=== PATIENT | female | born 1970 | race Caucasian/White ===

== ENCOUNTER 2017-04-23 04:59 | Inpatient (IN) | payer OTHER ==
[~2017-04-23] VITALS: Ht 167.6 cm; Wt 70.5 kg
[2017-04-23] MEDS ORDERED: HYDR50TA70 PO ×2 (05:40→12:48)
[2017-04-23] MEDS ORDERED: TYLE325C PO (05:40)
[2017-04-23] MEDS ORDERED: MOBI15TA PO (05:40)
[2017-04-23] MEDS ORDERED: BUSP10TA PO ×2 (05:40→14:18)
[2017-04-23] MEDS ORDERED: TOPI50TA9 PO ×2 (05:40→14:18)
[2017-04-23] MEDS ORDERED: LEXA1TAB2 PO ×2 (05:40→12:48)
[2017-04-23] MEDS ORDERED: AMIT25TA PO ×2 (05:40→12:48)
[2017-04-23 06:14] LABS: BASO % 0.2 % (0.0-1.0); EOS # 0.1 10^3/uL (0.0-0.50); EOS % 0.4 % (0.0-3.0); IMMATURE GRANULOCYTE % 0.7 % (0-0); LYMPH % 6.2 % (24.0-44.0); MEAN CORPUSCULAR HEMOGLOBIN 28.8 pg (27.0-33.0); MEAN CORPUSCULAR HGB CONC 33.7 g/dl (32.0-36.5); MEAN CORPUSCULAR VOLUME 85.4 fl (80.0-96.0); MONO # 1.4 10^3/uL (0.0-0.8); MONO % 8.8 % (0.0-5.0); NEUTROPHILS # 13.3 10^3/uL (1.8-7.7); NEUTROPHILS % 83.7 % (36.0-66.0); PLATELET COUNT, AUTOMATED 250 10^3/uL (150-450); RED CELL DISTRIBUTION WIDTH 15.5 % (11.5-14.5); WHITE BLOOD COUNT 15.9 10^3/uL (4.0-10.0)
[2017-04-23 06:25] LABS: METHADONE URINE NEGATIVE (NEGATIVE)
[2017-04-23 06:30] LABS: CONTROL LINE HCG INT CTR LINE PRESENT
[2017-04-23 07:03] LABS: ALBUMIN 3.5 GM/DL (3.2-5.2); ALBUMIN/GLOBULIN RATIO 0.97 (1.00-1.93); ALKALINE PHOSPHATASE 109 U/L (45-117); ALT/SGPT 462 U/L (12-78); ANION GAP 10 MEQ/L (8-16); AST/SGOT 1573 U/L (7-37); BILIRUBIN,DIRECT 0.1 MG/DL (0.0-0.2); BILIRUBIN,TOTAL 0.5 MG/DL (0.2-1.0); BLOOD UREA NITROGEN 19 MG/DL (7-18); CALCIUM LEVEL 8.5 MG/DL (8.5-10.1); CARBON DIOXIDE LEVEL 22 MEQ/L (21-32); CHLORIDE LEVEL 105 MEQ/L (98-107); CREATININE FOR GFR 1.27 MG/DL (0.55-1.02); GLOMERULAR FILTRATION RATE 48.7 (>58); GLUCOSE, FASTING 107 MG/DL (70-105); POTASSIUM SERUM 3.6 MEQ/L (3.5-5.1); SODIUM LEVEL 137 MEQ/L (136-145); TOTAL PROTEIN 7.1 GM/DL (6.4-8.2)
[2017-04-23] MEDS ORDERED: NS 1,000 ML IV ONE (07:15)
[2017-04-23 07:46] LABS: INR 0.99
[2017-04-23] MEDS ORDERED: NICOTINE 21MG/24HR 1 EA TRANSDERMAL TD SCH (10:30)
[2017-04-23] MEDS ORDERED: MOM 30ML SUSPENSION UDC PO PRN (10:30)
[2017-04-23] MEDS ORDERED: MAALOX 30 ML SUSP *UDC PO PRN (10:30)
[2017-04-23 11:44] VITALS: BP 128/72
[2017-04-23] MEDS ORDERED: LORA10TA2 PO (12:48)
[2017-04-23] MEDS ORDERED: ACET1TAB17 PO (14:18)
[2017-04-23] MEDS ORDERED: MELO15TA4 PO (14:18)
--- NOTE | 2017-04-23 16:01 | CR.PDOC ---
[facility] Consultation Consultation DATE OF CONSULTATION: Apr 23, 2017 at 04:59 PRIMARY CARE PHYSICIAN: Dr. Cosme REFERRING PROVIDER: Dr. Cosme ATTENDING PHYSICIAN: Dr. Cosme REASON FOR CONSULTATION/CHIEF COMPLAINT: left leg numbness and weakness HISTORY OF PRESENT ILLNESS: 46 y/o female with past medical history of depression and bipolar complains of left leg numbness and weakness that began one day ago and is progressively getting worse. Pt states she still has good sensation to her left leg, denies other extremities with weakness, numbness or paralysis. She has chronic low back pain and states that yesterday it seems as though the back pain got worse., denies recent trauma to account for this. The pt denies having any incontinence of bowel or urine, denies numbness in the groin, denies fevers, muscle aches or chills. She denies n/v nor diarrhea or blood in urine or stool. She states her leg does not hurt but that it is just heavy and feels numb. ALLERGIES: Please see below. HOME MEDICATIONS: Please see below. PAST MEDICAL HISTORY: bipolar, depression, CBP REVIEW OF SYSTEMS: CONSTITUTIONAL: denies changes in sleep or weight HEENT: no headache or change in vision CARDIOVASCULAR: no chest pain, SOB, cough or racing heart RESPIRATORY: no sob or cough GENITOURINARY: no pain w urination or blood in urine MUSCULOSKELETAL: no other areas of her body with numbness or weakness GASTROINTESTINAL: no n/v nor diarrhea SKIN: no rashes PSYCHIATRIC: pt is appropriate, has bipolar disease and is in [facility] PHYSICAL EXAMINATION: VITAL SIGNS: Please see below. 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 ASSESSMENT/PLAN: 1. Numbness -will obtain MRI and x-ray of L-spine, suspect this is secondary to compression of sciatic nerve, likely to resolve in the next few hours to days. -physical therapy consulted for optimization -May consult Ortho., depending on imaging finding 2. Transaminitis -likely secondary to past drug use -hepatitis panel pending -pending abdominal u/s -follow up liver function tests 3. Hypothyroid -repeat thyroid study -TSH 3.9 4.rhabdomyolysis -creatine 1.32 -81515 total CK -encourage oral hydration -will trend CK Vital Signs/I&O Vital Signs Date Time Temp Pulse Resp B/P (MAP) Pulse Ox O2 Delivery O2 Flow Rate FiO2 04/23/17 11:44 96.4 90 18 128/72 (90) 04/23/17 10:45 99 Room Air Laboratory Data Labs 24H Laboratory Tests 2 04/23/17 05:45: Immature Granulocyte % (Auto) 0.7H, White Blood Count 15.9H, Red Blood Count 4.31, Hemoglobin 12.4, Hematocrit 36.8, Mean Corpuscular Volume 85.4, Mean Corpuscular Hemoglobin 28.8, Mean Corpuscular Hemoglobin Concent 33.7, Red Cell Distribution Width 15.5H, Platelet Count 250, Neutrophils (%) (Auto) 83.7H, Lymphocytes (%) (Auto) 6.2L, Monocytes (%) (Auto) 8.8H, Eosinophils (%) (Auto) 0.4, Basophils (%) (Auto) 0.2, Neutrophils # (Auto) 13.3H, Lymphocytes # (Auto) 1.0L, Monocytes # (Auto) 1.4H, Eosinophils # (Auto) 0.1, Basophils # (Auto) 0.0 , Immature Granulocyte # (Auto) 0.1H, Nucleated Red Blood Cells % (auto) 0.0, Prothrombin Time 13.2, Prothromb Time International Ratio 0.99, Anion Gap 10, Glomerular Filtration Rate 48.7L, Calcium Level 8.5, Aspartate Amino Transf (AST /SGOT) 1573H, Alanine Aminotransferase (ALT/SGPT) 462H, Alkaline Phosphatase 109 , Total Bilirubin 0.5, Direct Bilirubin 0.1, Total Creatine Kinase 42330D, Total Protein 7.1, Albumin 3.5, Albumin/Globulin Ratio 0.97L, Thyroid Stimulating Hormone (TSH) 3.900H, Human Chorionic Gonadotropin, Qual NEGATIVE, Salicylates Level < 1.7L, Urine Amphetamines Screen NEGATIVE, Urine Benzodiazepines Screen NEGATIVE, Urine Opiates Screen NEGATIVE, Urine Methadone Screen NEGATIVE, Acetaminophen Level < 2.0L, Urine Barbiturates Screen NEGATIVE , Urine Phencyclidine Screen NEGATIVE, Urine Cocaine Metabolite Screen NEGATIVE , Urine Cannabinoids Screen NEGATIVE, Ethyl Alcohol Level < 0.003 04/23/17 15:40: CBC/BMP Laboratory Tests 04/23/17 05:45 Red Blood Count 4.31, Mean Corpuscular Volume 85.4, Mean Corpuscular Hemoglobin 28.8, Mean Corpuscular Hemoglobin Concent 33.7, Red Cell Distribution Width 15.5 H, Neutrophils (%) (Auto) 83.7 H, Lymphocytes (%) (Auto) 6.2 L, Monocytes ( %) (Auto) 8.8 H, Eosinophils (%) (Auto) 0.4, Basophils (%) (Auto) 0.2, Neutrophils # (Auto) 13.3 H, Lymphocytes # (Auto) 1.0 L, Monocytes # (Auto) 1.4 H, Eosinophils # (Auto) 0.1, Basophils # (Auto) 0.0 Allergies Coded Allergies: Sulfa Antibiotics (Verified Allergy, Severe, 04/23/17) Cephalosporins (Unverified Allergy, Unknown, 04/23/17) Penicillins (Verified Allergy, Unknown, 04/23/17) Home Medications Scheduled Amitriptyline HCl (Amitriptyline HCl) 25 Mg Tab, 25 MG PO QHSP for INSOMNIA, ( Reported) Buspirone HCl (Buspirone HCl) 10 Mg Tab, 10 MG PO BID for ANXIETY, (Reported) Escitalopram Oxalate (Lexapro) 20 Mg Tab, 20 MG PO DAILY for DEPRESSION, ( Reported) Hydroxyzine HCl (Hydroxyzine HCl) 50 Mg Tab, 50 MG PO Q6HP for ANXIETY, ( Reported) Loratadine (Loratadine) 10 Mg Tab, 10 MG PO DAILY for allergies, (Reported) Meloxicam (Meloxicam) 15 Mg Tab, 15 MG PO DAILY for pain, (Reported) Topiramate (Topiramate) 50 Mg Tab, 50 MG PO BID for MOOD, (Reported) Scheduled PRN Acetaminophen (Acetaminophen) 325 Mg Tab, 325 MG PO Q6HP PRN for pain, (Reported ) GME ATTESTATION GME ATTESTATION My faculty preceptor for this patient encounter was physically present during the encounter and was fully available. All aspects of the patient interview, examination, medical decision making process, and medical care plan development were reviewed and approved by the faculty preceptor. The faculty preceptor is aware and concurs with the plan as stated in the body of this note and will attest to such by his/her cosignature. ATTENDING NOTE I have both independently examined this patient as well as reviewed the note. I have discussed in detail with the resident the findings and plan of treatment as documented in the residents note. I will continue to follow the patient and offer further guidance to the patients care as necessary during this hospital stay. SCOTT Leal MD, DO Apr 23, 2017 16:01 DAYO OLIVARES MD Apr 24, 2017 11:53
[2017-04-23 16:41] LABS: THYROXINE (T4) 9.1 UG/DL (4.5-12.0)
--- NOTE | 2017-04-23 16:50 | REP ---
Clinical: Back pain extending to the left lower extremity with possible fall. Technique: AP, lateral, bilateral oblique, and coned-down views. Findings: Alignment and lordosis is maintained. The vertebral bodies including transverse process and spinous processes are intact and normal. There is no evidence for acute fracture / compression injury or subluxation. No evidence for spondylolysis or spondylolisthesis. No significant degenerative change is noted. Impression: Normal, age-appropriate lumbosacral spine radiograph series. Signed by Crow Graves MD 04/23/2017 04:42 P
[2017-04-23 18:00] VITALS: BP 121/56
[2017-04-23 21:00] VITALS: BP 121/56
[2017-04-23] MEDS: ACETAMINOPHEN TAB 650MG DOSE (2X325MG) PO PRN (23:29)
[2017-04-24 06:47] VITALS: BP 114/67
[2017-04-24 07:41] LABS: MEAN CORPUSCULAR HEMOGLOBIN 28.6 pg (27.0-33.0); MEAN CORPUSCULAR HGB CONC 33.7 g/dl (32.0-36.5); MEAN CORPUSCULAR VOLUME 84.9 fl (80.0-96.0); PLATELET COUNT, AUTOMATED 226 10^3/uL (150-450); RED CELL DISTRIBUTION WIDTH 15.2 % (11.5-14.5); WHITE BLOOD COUNT 9.6 10^3/uL (4.0-10.0)
[2017-04-24 08:24] LABS: ALBUMIN/GLOBULIN RATIO 1.03 (1.00-1.93); BILIRUBIN,TOTAL 0.4 MG/DL (0.2-1.0); CALCIUM LEVEL 8.4 MG/DL (8.5-10.1); CREATININE FOR GFR 1.08 MG/DL (0.55-1.02); GLOMERULAR FILTRATION RATE 58.7 (>58); MAGNESIUM LEVEL 2.3 MG/DL (1.8-2.4); POTASSIUM SERUM 3.6 MEQ/L (3.5-5.1); TOTAL PROTEIN 5.9 GM/DL (6.4-8.2)
--- NOTE | 2017-04-24 09:32 | MHHPE ---
DATE OF ADMISSION: 04/23/2017 LEGAL STATUS AT ADMISSION: 9.39 legal status. CHIEF COMPLAINT: "I have been feeling very depressed". HISTORY OF PRESENT ILLNESS: 46-year-old female with history of bipolar disorder and anxiety admitted to our unit on a 9.39 legal status. According to the record, the patient is a dependent that was brought to our emergency department after she overdosed on unknown number of Lexapro, hydroxyzine, and amitriptyline and she does not know if she took some other type of medication. The patient stated that she believed she took approximately 20 tablets of amitriptyline, but she is not sure. The patient was making a statement such as, "I want to be normal". The patient admits that when she gets depressed she has a tendency to drink more. She says that she was drinking approximately two times a week. The last time she drank she says that she drank 8 beers and 5 shots o whiskey. During the interview, the patient admits to feeling depressed, hopeless, and helpless with low energy. The patient also reports auditory hallucinations, hears like "music" when everything is very quiet. The patient does not have other psychotic symptoms. The patient has been treated with Lexapro, Topamax, BuSpar and Vistaril. She is getting her treatment at [facility]. PAST MEDICAL HISTORY: The patient reports lower back pain. She is under investigation of a left lower leg numbness. The hospitalist is at this time doing the medical workup. PSYCHIATRIC HISTORY: Patient has been diagnosed of bipolar disorder and anxiety. She is treated as an outpatient at [facility]. The patient was admitted two years ago in a hospital in [place] for depression. FAMILY HISTORY: The patient reports that her mother, grandmother and daughter suffer from depression. SUBSTANCE ABUSE HISTORY: The patient reports using more alcohol than normally since she started feeling depressed. She has tendency to drink more during these episodes. As above, the patient drank 8 beers and 5 shots of whiskey the last time she drank and says that approximately drinks two times a week. SOCIAL HISTORY: The patient reports normal childhood. No problems at school until she was in high school when they started bullying her. The patient has been for 4-1/2 years and has three daughters. Her support system is her . PSYCHIATRIC REVIEW OF SYSTEMS: Somatization Disorder: Screening for pain, conversion, GI and sexual symptoms is negative. Eating Disorder: Screening for dieting, use of laxatives, eating in binges is negative. Cognitive Disorder: Screening for short and longterm memory impairment, orientation and general information is negative for cognitive disorder. Psychotic Disorder: The patient reports auditory hallucionations, but denies delusions, paranoia, grandiosity, catholic preoccupation, or looseness of associations. PHYSICAL EXAMINATION: As per physician assistant field hockey coach. MENTAL STATUS EXAMINATION: The patient is dressed in [facility]. The patient is cooperative. Speech is soft and monotone. Has fair eye contact. Mood is anxious and depressed. Affect is restricted. The patient is oriented to time, place, person and situation. Maintains attention and concentration correctly. Instant recall, recent and remote memory are intact. Thought processes are coherent, logical and goal directed. The patient does not have visual hallucinations, reports auditory hallucinations of hearing music when the room is very quiet. Denies paranoid, persecutory, somatic, grandiose or catholic delusions. The patient has suicidal ideation intermittently. No homicidal ideation. Judgment and insight is limited. DIAGNOSES: [place] I: Unspecified depressive disorder. Bipolar disorder by history. Rule out alcohol abuse versus dependency. [place] II: Deferred. [place] III: Lower back pain and left leg numbness. INITIAL TREATMENT PLAN: The patient was admitted on a 9.39 legal status. Complete history was obtained. With her permission, family with be contacted and database will be expanded. Her medication regime will be reviewed and changed accordingly. She will be provided with protected environment. She will be treated with individual, group and milieu therapy. She will also receive supportive psychoeducation. Discharge planning will commence immediately. Length of stay will be between 5-7 days. Outpatient followup will be strongly recommended. The treatment plan will focus initially on depression, risk for suicide and substance abuse.
[2017-04-24 18:00] VITALS: BP 109/64
--- NOTE | 2017-04-24 18:35 | IPN ---
DATE: 04/24/2017 SUBJECTIVE: The patient is seen and examined in the room today. The patient stated her lower extremity symptoms have been improving. Still complaining about pain in the lower back. No issue with oral intake. OBJECTIVE: VITAL SIGNS: Temperature 98.7, pulse 91, respirations 18, blood pressure 114/67, pulse oximetry no recording for today. GENERAL: No sign of acute distress. Sitting comfortably in her room eating her meal. Alert and oriented times three. HEENT: Normocephalic, atraumatic. Extraocular motor grossly intact. CARDIOVASCULAR: Positive S1, S2. Regular rate. LUNGS: Clear to auscultation bilaterally. ABDOMEN: Soft, nontender, nondistended. Bowel sounds present. No tenderness. EXTREMITIES: There is some tenderness to palpation in the lower back and there is some swelling noted. LABORATORY DATA: WBC 9.6, hemoglobin 10.6, hematocrit 31.5, platelet count 226. Sodium 141, potassium 3.6, chloride 109, carbon dioxide 25, BUN 16, creatinine 1.08, GFR 58.7, fasting glucose 86, calcium 8.4, magnesium 2.3. Total bilirubin 0.4, AST 1047, ALT 452, alkaline phosphatase 86. Total CK is 44,891. Total protein 5.9, albumin three. ASSESSMENT AND PLAN: 1. Rhabdomyolysis. Total CK is improving. Encourage oral intake. The patient did drink multiple cups of water. 2. Numbness of the lower extremities. The patient showed symptomatically improving. However, there is still no official read for the lumbar MRI. 3. Hypothyroidism. Thyroid functions are in normal range. 4. Transaminitis. Hepatitis panel pending. At this moment, the patient is not able to be nothing by mouth to prepare for liver function. We will reschedule at another appropriate time. Possibly due to medication related. 5. Deep venous thrombosis (DVT) prophylaxis. Encourage ambulation.
--- NOTE | 2017-04-25 02:41 | HPE ---
DATE OF ADMISSION: 04/23/2017 HISTORY OF PRESENT ILLNESS: Please refer to psychiatric history and evaluation for further details on this admission. This examination and history is intended for medical issues, which may need treatment, followup or consult on this 46-year-old female. ALLERGIES: CEPHALOSPORINS, PENICILLINS, SULFA. PRIMARY CARE PROVIDER: [facility]. 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 She smokes one pack of cigarettes per day. Ethyl alcohol (EtOH) 5-10 drinks 2-3 times a week. PAST MEDICAL HISTORY: 1. Bipolar. 2. Depression. 3. Chronic back pain. She is currently having a further workup for complaints of increased lower back pain with lower left leg numbness and weakness. She has an MRI scheduled for the morning. 4. She is currently being treated for rhabdomyolysis and elevated liver enzymes. Fluids are being encouraged and she has a liver ultrasound scheduled for the morning. Hepatitis panel is pending. PAST SURGICAL HISTORY: She has had repair of left ankle fracture with plate and six screws. Orthopedic surgery left wrist and hand. LABORATORY STUDIES: 04/23: Her CPK was 76,147, today it is 44,891. AST was 1573, it is down to 1047. ALT was 462, it is down to 452. Initial TSH was 3.9. Recheck thyroid profile was completely normal. HOME MEDICATIONS: - amitriptyline 25 mg by mouth nightly - buspirone 10 mg by mouth twice a day - escitalopram 20 mg by mouth daily - hydroxyzine 50 mg by mouth every six hours as needed for anxiety - loratadine 10 mg by mouth daily - meloxicam 15 mg by mouth daily - Topamax 50 mg by mouth twice a day - Tylenol 325 by mouth every 6 hours as needed for pain which I will hold secondary to elevated liver enzymes REVIEW OF SYSTEMS: 10-system review was done. Other than overall muscle aching and left lower leg numbness and weakness, elevated CPK, hospitalist consult was obtained. See consultation report for further details. Patient is having an MRI of the lumbosacral (LS) spine. Hepatitis panel is pending. Abdominal ultrasound is pending. Serial CPKs are ordered. Increased fluid by mouth has been instructed to the patient and she is being compliant with this. PHYSICAL EXAMINATION: 46-year-old cooperative female in no acute distress. Height 66 inches, weight 70 kg, body mass index (BMI) 25.1. Patient is alert and oriented times three. Pupils equal and react to light. Extraocular muscles intact. Cornea and sclerae clear. Conjunctivae were normal. No facial asymmetry. Pharynx, tongue and gums pink and moist. Tongue is midline. Neck is supple without lymphadenopathy. No thyromegaly, no goiter. Chest clear to auscultation without wheeze or retraction. Heart is regular. Abdomen is benign. Bowel sounds positive. Genitourinary/rectal: Not done. Extremities show equal strength, full range of motion. No cyanosis, clubbing or edema. Peripheral pulses equal and palpable bilaterally. Skin is warm and dry. Numbness noted to left lower leg. IMPRESSION/PLAN: 1. Psychiatric plan per psychiatry. 2. Rhabdomyolysis. CK is improving. Encourage oral intake. Recheck in the morning. 3. Numbness lower extremity and low back pain. Followup on MRI of the lumbosacral (LS) spine. 4. Elevated AST/ALT. Hepatitis panel pending. Ultrasound is scheduled for tomorrow. Followup on results. Recheck liver enzymes in the morning. Stop Tylenol secondary to increased liver enzymes.
[2017-04-25 06:00] VITALS: BP 110/62
[2017-04-25 08:16] LABS: MEAN CORPUSCULAR HEMOGLOBIN 28.8 pg (27.0-33.0); MEAN CORPUSCULAR HGB CONC 33.8 g/dl (32.0-36.5); MEAN CORPUSCULAR VOLUME 85.3 fl (80.0-96.0); PLATELET COUNT, AUTOMATED 266 10^3/uL (150-450); RED CELL DISTRIBUTION WIDTH 14.9 % (11.5-14.5); WHITE BLOOD COUNT 10.3 10^3/uL (4.0-10.0)
--- NOTE | 2017-04-25 08:17 | ECGEPIP ---
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
[2017-04-25 09:01] LABS: ALBUMIN 3.2 GM/DL (3.2-5.2); BILIRUBIN,TOTAL 0.4 MG/DL (0.2-1.0); CALCIUM LEVEL 8.7 MG/DL (8.5-10.1); CREATININE FOR GFR 1.12 MG/DL (0.55-1.02); GLOMERULAR FILTRATION RATE 56.3 (>58); MAGNESIUM LEVEL 2.1 MG/DL (1.8-2.4); POTASSIUM SERUM 3.5 MEQ/L (3.5-5.1); TOTAL PROTEIN 6.4 GM/DL (6.4-8.2)
--- NOTE | 2017-04-25 09:05 | REP ---
MR LUMBAR SPINE WITHOUT CONTRAST: HISTORY: Back pain. Decreased signal intensity on T2-weighted images is present in the L5-S1 intervertebral disc. The disc is decreased in height. These findings are consistent with disc degeneration. There is no disc bulge or herniation at the L1-2 through L3-4 level. The nerves exit the neural foramina without compression. A diffuse disc bulge is present at the L4-5 level. There is minimal compression at the thecal sac. There is hypertrophy of the posterior articulating facets. The L4 nerves exit the neural foramina without compression. A diffuse disc bulge is present at the L5-S1 level. This abuts the thecal sac and S1 nerves. There is hypertrophy of the posterior articulating facets. The L5 nerves exit the neural foramina without compression. The conus medullaris is normal in appearance terminating the level of the L1-2 intervertebral disc. Normal signal intensity is present in the lumbar vertebral bodies. IMPRESSION: 1. Diffuse disc bulge at the L4-5 level with minimal thecal sac compression. 2. Diffuse disc bulge at the L5-S1 level. This abuts the thecal sac and S1 nerves. Signed by Geoff Hernandez MD 04/25/2017 09:22 A
[2017-04-25] MEDS: ESCITALOPRAM OXALATE 10 MG TAB (LEXAPRO) PO SCH (09:33)
--- NOTE | 2017-04-25 09:45 | REP ---
Clinical: Right upper quadrant abdominal pain. Technique: Price scale ultrasound using curved array transducer. Findings: The liver and pancreas are normal in contour, size, and echogenicity without focal hepatic or pancreatic lesions identified. The gallbladder is normal without gallstones, wall thickening or pericholecystic fluid. No biliary ductal dilatation is appreciated, and the common bile duct measures 3.9 mm diameter. The right kidney is normal in reniform shape without hydronephrosis and measures 11.5 x 5.2 x 5.8 cm. No ascites. Visualized portions of the abdominal aorta normal. Impression: Normal right upper quadrant and gallbladder abdominal ultrasound. Signed by Crow Graves MD 04/25/2017 09:37 A
--- NOTE | 2017-04-25 09:56 | ECGEPIP ---
Stationary ECG Study [facility] Test Date: 2017-04-25 Pat Name: JOHN WAGNER Department: Room: [place] [address] Gender: F Pulper: AZALIA : 1970 Requested By: Debra Conley [facility] Order Number: [id number] Reading MD: Yulia Mejia Measurements Intervals [place] Rate: 80 P: 56 ME: 153 QRS: -3 QRSD: 105 T: 38 QT: 400 QTc: 464 Interpretive Statements SINUS RHYTHM ST T-WAVE ABNORMALITY somewhat improved Left axis deviation again present C/w 1 04/23/17 Electronically Signed On 04-25-2017 9:56:18 EST by Yulia Mejia
--- NOTE | 2017-04-25 15:49 | MHIPNPDOC ---
[facility] Progress Note Progress Note DATE OF SERVICE: 04/25/17 HISTORY: As per Dr. Cosme: " 46-year-old female with history of bipolar disorder and anxiety admitted to our unit on a 9.39 legal status. According to the record, the patient is a dependent that was brought to our emergency department after she overdosed on unknown number of Lexapro, hydroxyzine, and amitriptyline and she does not know if she took some other type of medication. The patient stated that she believed she took approximately 20 tablets of amitriptyline, but she is not sure. The patient was making a statement such as , "I want to be normal". The patient admits that when she gets depressed she has a tendency to drink more. She says that she was drinking approximately two times a week. The last time she drank she says that she drank 8 beers and 5 shots o whiskey. During the interview, the patient admits to feeling depressed , hopeless, and helpless with low energy. The patient also reports auditory hallucinations, hears like "music" when everything is very quiet. The patient does not have other psychotic symptoms. The patient has been treated with Lexapro, Topamax, BuSpar and Vistaril. She is getting her treatment at [facility]." VITAL SIGNS: See below. NEW TEST RESULTS: 24H Labs Laboratory Tests 2 04/25/17 07:45: Nucleated Red Blood Cells % (auto) 0.0 04/25/17 07:46: Anion Gap 8, Glomerular Filtration Rate 56.3L, Blood Urea Nitrogen 15, Creatinine 1.12H, Sodium Level 144, Potassium Level 3.5, Chloride Level 108H, Carbon Dioxide Level 28, Calcium Level 8.7, Aspartate Amino Transf (AST/SGOT) 885H, Alanine Aminotransferase (ALT/SGPT) 482H, Total Creatine Kinase 93169D, Alkaline Phosphatase 86, Total Bilirubin 0.4, Total Protein 6.4, Albumin 3.2, Magnesium Level 2.1, Creatine Kinase MB 43.8H, Creatine Kinase MB Relative Index 0.14, Albumin/Globulin Ratio 1.00 CURRENT MEDICATIONS: See below. MENTAL STATUS EXAMINATION: Patient is a 46-year old female, who is alert, cooperative, dressed in hospital clothes, fairly groomed. Speech: Normal in tone, rate and volume Language skills are Fair Thought processes including: Intact. Thought content: Anxious thoughts about her suicidal attempt Abstract reasoning, and computation: Not assessed at this time. Description of associations: Fair Description of abnormal or psychotic thoughts: Denies SI/HI, A/V hallucinations , thought delusions. Judgment: Poor Insight: Poor Orientation: Oriented to place, person and situation Recent and remote memory: Limited Attention span and concentration: Fair Language: Normal Fund of knowledge: Average Mood: Euthymic. Affect: Congruent with mood DIAGNOSES: 1. Unspecified depressive disorder. 2. Bipolar disorder by history. 3. Rule out alcohol abuse versus dependency. ASSESSMENT: Patient says she's not hallucinating, she denies suicidal ideation, denies homicidal ideation. She says she feels better, her head "is quiet now because it was loud in there". She says she doesn't know why her back are not the same since she overdosed. She thinks it might have been by laying on the same side of her body when she was unconscious laying on the floor. MANAGEMENT PLAN: continue with the same meds. TIME SPENT: 20 minutes. Vital Signs Vital Signs Date Time Temp Pulse Resp B/P (MAP) Pulse Ox O2 Delivery O2 Flow Rate FiO2 04/25/17 06:00 97.7 75 16 110/62 (78) 04/24/17 18:00 99 Room Air Laboratory Data 24H Labs Laboratory Tests 2 04/25/17 07:45: Nucleated Red Blood Cells % (auto) 0.0 04/25/17 07:46: Anion Gap 8, Glomerular Filtration Rate 56.3L, Blood Urea Nitrogen 15, Creatinine 1.12H, Sodium Level 144, Potassium Level 3.5, Chloride Level 108H, Carbon Dioxide Level 28, Calcium Level 8.7, Aspartate Amino Transf (AST/SGOT) 885H, Alanine Aminotransferase (ALT/SGPT) 482H, Total Creatine Kinase 07208N, Alkaline Phosphatase 86, Total Bilirubin 0.4, Total Protein 6.4, Albumin 3.2, Magnesium Level 2.1, Creatine Kinase MB 43.8H, Creatine Kinase MB Relative Index 0.14, Albumin/Globulin Ratio 1.00 CBC/BMP Laboratory Tests 04/25/17 07:45 Red Blood Count 4.16, Mean Corpuscular Volume 85.3, Mean Corpuscular Hemoglobin 28.8, Mean Corpuscular Hemoglobin Concent 33.8, Red Cell Distribution Width 14.9 H 04/25/17 07:46 Calcium Level 8.7, Aspartate Amino Transf (AST/SGOT) 885 H, Alanine Aminotransferase (ALT/SGPT) 482 H, Total Creatine Kinase 28061 H, Alkaline Phosphatase 86, Total Bilirubin 0.4, Total Protein 6.4, Albumin 3.2 Current Medications Current Medications Acetaminophen (Tylenol Tab) 650 mg Q6HP PRN PO HEADACHE or DISCOMFORT Last administered on 04/23/17 23:29; Start 04/23/17 at 10:30; Stop 05/23/17 at 10 :29 Al Hydrox/Mg Hydrox/Simethicone (Mylanta) 30 ml Q4HP PRN PO HEARTBURN/ INDIGESTION; Start 04/23/17 at 10:30; Stop 05/23/17 at 10:29 Escitalopram Oxalate (Lexapro) 20 mg DAILY PO Last administered on 04/25/17 09:33; Start 04/25/17 at 09:00; Stop 05/25/17 at 08:59 Home Med (Med Rec Complete!) ASDIRECTED XX ; Start 04/23/17 at 06:30; Stop at 06:30; Status DC Magnesium Hydroxide (Milk Of Magnesia) 30 ml DAILYPRN PRN PO CONSTIPATION; Start 04/23/17 at 10:30; Stop 05/23/17 at 10:29 Nicotine (Nicoderm Cq 21mg) 1 patch DAILY TD ; Start 04/23/17 at 10:30; Stop 04/24/17 at 08:44; Status DC Trazodone HCl (Desyrel) 50 mg QHSP PRN PO INSOMNIA; Start 04/23/17 at 10:30; Stop 05/23/17 at 10:29 Allergies Coded Allergies: Sulfa Antibiotics (Verified Allergy, Severe, 04/23/17) Cephalosporins (Unverified Allergy, Unknown, 04/23/17) Penicillins (Verified Allergy, Unknown, 04/23/17) DARREL POSEY MD Apr 25, 2017 15:49
[2017-04-25 18:11] VITALS: BP 125/79
[2017-04-25] MEDS: ACETAMINOPHEN TAB 650MG DOSE (2X325MG) PO PRN (22:50)
[2017-04-26 06:40] VITALS: BP 129/78
[2017-04-26 08:56] LABS: MEAN CORPUSCULAR HEMOGLOBIN 28.8 pg (27.0-33.0); MEAN CORPUSCULAR HGB CONC 34.6 g/dl (32.0-36.5); MEAN CORPUSCULAR VOLUME 83.2 fl (80.0-96.0); PLATELET COUNT, AUTOMATED 261 10^3/uL (150-450); RED CELL DISTRIBUTION WIDTH 14.6 % (11.5-14.5); WHITE BLOOD COUNT 12.4 10^3/uL (4.0-10.0)
[2017-04-26] MEDS: ESCITALOPRAM OXALATE 10 MG TAB (LEXAPRO) PO SCH (09:08)
[2017-04-26 09:58] LABS: ALBUMIN 2.7 GM/DL (3.2-5.2); ALBUMIN/GLOBULIN RATIO 0.93 (1.00-1.93); BILIRUBIN,TOTAL 0.4 MG/DL (0.2-1.0); CALCIUM LEVEL 8.2 MG/DL (8.5-10.1); CREATININE FOR GFR 1.12 MG/DL (0.55-1.02); GLOMERULAR FILTRATION RATE 56.3 (>58); MAGNESIUM LEVEL 1.7 MG/DL (1.8-2.4); POTASSIUM SERUM 3.3 MEQ/L (3.5-5.1); TOTAL PROTEIN 5.6 GM/DL (6.4-8.2)
[2017-04-26] MEDS ORDERED: POTASSIUM CHLORIDE 10 MEQ SR TABLET PO ONE (11:00)
[2017-04-26 18:00] VITALS: BP 123/76
--- NOTE | 2017-04-26 18:03 | MHIPNPDOC ---
[facility] Progress Note Progress Note DATE OF SERVICE: 04/26/17 HISTORY: As per Dr. Cosme: " 46-year-old female with history of bipolar disorder and anxiety admitted to our unit on a 9.39 legal status. According to the record, the patient is a dependent that was brought to our emergency department after she overdosed on unknown number of Lexapro, hydroxyzine, and amitriptyline and she does not know if she took some other type of medication. The patient stated that she believed she took approximately 20 tablets of amitriptyline, but she is not sure. The patient was making a statement such as , "I want to be normal". The patient admits that when she gets depressed she has a tendency to drink more. She says that she was drinking approximately two times a week. The last time she drank she says that she drank 8 beers and 5 shots o whiskey. During the interview, the patient admits to feeling depressed , hopeless, and helpless with low energy. The patient also reports auditory hallucinations, hears like "music" when everything is very quiet. The patient does not have other psychotic symptoms. The patient has been treated with Lexapro, Topamax, BuSpar and Vistaril. She is getting her treatment at [facility] [place]." VITAL SIGNS: See below. NEW TEST RESULTS: 4H Labs 24H Labs Laboratory Tests 2 04/26/17 08:27: Nucleated Red Blood Cells % (auto) 0.0, Anion Gap 10, Glomerular Filtration Rate 56.3L, Blood Urea Nitrogen 15, Creatinine 1.12H, Sodium Level 137, Potassium Level 3.3L, Chloride Level 102, Carbon Dioxide Level 25, Calcium Level 8.2L, Aspartate Amino Transf (AST/SGOT) 499H, Alanine Aminotransferase ( ALT/SGPT) 361H, Total Creatine Kinase 27891I, Alkaline Phosphatase 74, Total Bilirubin 0.4, Total Protein 5.6L, Albumin 2.7L, Magnesium Level 1.7L, Creatine Kinase MB 13.9H, Creatine Kinase MB Relative Index 0.13, Albumin/Globulin Ratio 0.93L CURRENT MEDICATIONS: See below. MENTAL STATUS EXAMINATION: Patient is a 46-year old female, who is alert, cooperative, dressed in hospital clothes, fairly groomed. Speech: Normal in tone, rate and volume Language skills are Fair Thought processes including: Intact. Thought content: Anxious about going home, she doesn't want to be at the hospital Abstract reasoning, and computation: Fair Description of associations: Fair Description of abnormal or psychotic thoughts: Denies SI/HI, A/V hallucinations , thought delusions. Judgment: Poor Insight: Poor Orientation: Oriented to place, person and situation Recent and remote memory: Limited Attention span and concentration: Fair Language: Normal Fund of knowledge: Good Mood: Anxious Affect: Anxious DIAGNOSES: 1. Unspecified depressive disorder. 2. Bipolar disorder by history. 3. Rule out alcohol abuse versus dependency. ASSESSMENT: Patient is anxious about being discharged, she is not insightful about the severity of her suicide attempt. she is refusing to go to groups because she says she is reading and that keeps her mind out of her problems. I explained she needs to learn coping skills. MANAGEMENT PLAN: continue with the same meds. TIME SPENT: 20 minutes. Vital Signs Vital Signs Date Time Temp Pulse Resp B/P (MAP) Pulse Ox O2 Delivery O2 Flow Rate FiO2 04/26/17 06:40 98.6 86 16 129/78 (95) Room Air 04/24/17 18:00 99 Laboratory Data 24H Labs Laboratory Tests 2 04/26/17 08:27: Nucleated Red Blood Cells % (auto) 0.0, Anion Gap 10, Glomerular Filtration Rate 56.3L, Blood Urea Nitrogen 15, Creatinine 1.12H, Sodium Level 137, Potassium Level 3.3L, Chloride Level 102, Carbon Dioxide Level 25, Calcium Level 8.2L, Aspartate Amino Transf (AST/SGOT) 499H, Alanine Aminotransferase ( ALT/SGPT) 361H, Total Creatine Kinase 17300X, Alkaline Phosphatase 74, Total Bilirubin 0.4, Total Protein 5.6L, Albumin 2.7L, Magnesium Level 1.7L, Creatine Kinase MB 13.9H, Creatine Kinase MB Relative Index 0.13, Albumin/Globulin Ratio 0.93L CBC/BMP Laboratory Tests 04/26/17 08:27 Red Blood Count 4.52, Mean Corpuscular Volume 83.2, Mean Corpuscular Hemoglobin 28.8, Mean Corpuscular Hemoglobin Concent 34.6, Red Cell Distribution Width 14.6 H, Calcium Level 8.2 L, Aspartate Amino Transf (AST/SGOT) 499 H, Alanine Aminotransferase (ALT/SGPT) 361 H, Total Creatine Kinase 07929 H, Alkaline Phosphatase 74, Total Bilirubin 0.4, Total Protein 5.6 L, Albumin 2.7 L Current Medications Current Medications Acetaminophen (Tylenol Tab) 650 mg Q6HP PRN PO HEADACHE or DISCOMFORT Last administered on 04/25/17 22:50; Start 04/23/17 at 10:30; Stop 05/23/17 at 10 :29 Al Hydrox/Mg Hydrox/Simethicone (Mylanta) 30 ml Q4HP PRN PO HEARTBURN/ INDIGESTION; Start 04/23/17 at 10:30; Stop 05/23/17 at 10:29 Escitalopram Oxalate (Lexapro) 20 mg DAILY PO Last administered on 04/26/17 09:08; Start 04/25/17 at 09:00; Stop 05/25/17 at 08:59 Home Med (Med Rec Complete!) ASDIRECTED XX ; Start 04/23/17 at 06:30; Stop at 06:30; Status DC Magnesium Hydroxide (Milk Of Magnesia) 30 ml DAILYPRN PRN PO CONSTIPATION; Start 04/23/17 at 10:30; Stop 05/23/17 at 10:29 Nicotine (Nicoderm Cq 21mg) 1 patch DAILY TD ; Start 04/23/17 at 10:30; Stop 04/24/17 at 08:44; Status DC Trazodone HCl (Desyrel) 50 mg QHSP PRN PO INSOMNIA; Start 04/23/17 at 10:30; Stop 05/23/17 at 10:29 Allergies Coded Allergies: Sulfa Antibiotics (Verified Allergy, Severe, 04/23/17) Cephalosporins (Unverified Allergy, Unknown, 04/23/17) Penicillins (Verified Allergy, Unknown, 04/23/17) DARREL POSEY MD Apr 26, 2017 18:03
[2017-04-26] MEDS ORDERED: LIDOCAINE 5% (LIDODERM) PATCH TD ONE (18:45)
[2017-04-26] MEDS: LIDOCAINE 5% (LIDODERM) PATCH TD SCH (21:00)
[2017-04-26] MEDS ORDERED: **NOTE PATIENT COMMENT** MISC XX SCH (21:00)
[2017-04-26] MEDS: IBUPROFEN 400 MG TAB PO SCH (22:22)
[2017-04-27] MEDS: IBUPROFEN 400 MG TAB PO SCH (06:08)
[2017-04-27 06:46] VITALS: BP 114/64
[2017-04-27 08:02] LABS: MEAN CORPUSCULAR HGB CONC 34.9 g/dl (32.0-36.5); MEAN CORPUSCULAR VOLUME 83.1 fl (80.0-96.0); PLATELET COUNT, AUTOMATED 238 10^3/uL (150-450); RED CELL DISTRIBUTION WIDTH 14.6 % (11.5-14.5); WHITE BLOOD COUNT 13.3 10^3/uL (4.0-10.0)
[2017-04-27 08:31] LABS: ALBUMIN 2.6 GM/DL (3.2-5.2); ALBUMIN/GLOBULIN RATIO 0.9 (1.00-1.93); BILIRUBIN,TOTAL 0.4 MG/DL (0.2-1.0); CALCIUM LEVEL 8.2 MG/DL (8.5-10.1); CREATININE FOR GFR 1.12 MG/DL (0.55-1.02); GLOMERULAR FILTRATION RATE 56.3 (>58); MAGNESIUM LEVEL 1.8 MG/DL (1.8-2.4); POTASSIUM SERUM 3.9 MEQ/L (3.5-5.1); TOTAL PROTEIN 5.5 GM/DL (6.4-8.2)
[2017-04-27] MEDS: **NOTE PATIENT COMMENT** MISC XX SCH ×2 (09:00→09:33)
[2017-04-27] MEDS ORDERED: LIDOCAINE 5% (LIDODERM) PATCH TD SCH (09:00)
[2017-04-27] MEDS: ESCITALOPRAM OXALATE 10 MG TAB (LEXAPRO) PO SCH (09:30)
[2017-04-27] MEDS ORDERED: AZITHROMYCIN 250 MG TAB PO ONE (11:15)
--- NOTE | 2017-04-27 11:50 | IPNPDOC ---
Date Seen The patient was seen on 04/27/17. Progress Note HPI: 46yoF admitted to [facility] for bipolar disorder, being medically examined today. Patient was brought to the emergency department after overdosing on Lexapro, hydroxyzine, amitriptyline, and possibly another medication. The patient was noted to have elevated LFTs and rhabdomyolysis. Following up with patient regarding her laboratory studies today. Patient states that yesterday she developed a harsh cough. Patient states she has had yellow rhinorrhea and yellow sputum. Sore throat seems to be improving per patient. Denies ear pain. Denies shortness of breath. Reports head pressure. Denies any fevers, chills, weakness, fatigue, FITZGERALD, CP, SOB, cough, palpitations, abdominal pain, N/V/D or changes in bowel or bladder habits. PMHx: 1. Bipolar disorder. 2. Depression. 3. Chronic back pain. MRI LS spine 04/23/17 1. Diffuse disc bulge at the L4-5 level with minimal thecal sac compression. 2. Diffuse disc bulge at the L5-S1 level. This abuts the thecal sac and S1 nerves. 4. Elevated LFTs. Hepatitis profile negative Right upper quadrant ultrasound 04/23/17, Normal right upper quadrant and gallbladder abdominal ultrasound. 5. CK D PAST SURGICAL HISTORY: Repair of left ankle fracture with plate and six screws. Orthopedic surgery left wrist and hand. PE: GEN: 46 yo F, appears stated age. Well-nourished, well developed. No acute distress. Alert and oriented x 3. Pleasant, interactive. HEENT: Normocephalic, atraumatic. Sclera are nonicteric. Conjunctiva without injection. Nose midline. EACs both patent BL. TMs both visualized and jimenez with good cone of light, no bulging or erythema. No facial asymmetry. Moist mucous membranes. Yellow nasal drainage. Pharynx with mild erythema. Neck supple, trachea midline. No lymphadenopathy or thyromegaly appreciated. CHEST: Regular rate and rhythm, +S1, +S2 LUNGS: Clear to auscultation bilaterally. No wheezes, rales, or rhonchi. Breathing appears symmetric and easy. Patient is speaking in full sentences. No accessory muscle use. ABD: Round, soft, non-tender, non-distended. +Bowel sounds throughout. EXT: No lower extremity edema appreciated. SKIN: [place], dry, warm. No rashes. NEURO: No focal deficits appreciated. EK04/25/[address] T-WAVE ABNORMALITY somewhat improved Left axis deviation again present C/w 1 04/23/17 A&P: 46yoF admitted to [facility] for bipolar disorder 1. Psych. Plan per Psychiatry. EKG on file. 2. Chronic low back pain. Continue Lidoderm patch daily as needed. 3. Borderline EKG. No cardiac signs or symptoms appreciated on exam, follow with PCP. 4. Follow up with PCP on discharge. Patient follows with [facility]. 5. Rhabdomyolysis. CK continues to trend downward. Continue daily labs. 6. Elevated serum creatinine. Unknown baseline. Has been 1.08-1.2. Obtain UA/ urine culture. Discontinue NSAID. Continue to monitor daily labs. 7. Elevated LFTs. Continuing to trend downward. Hepatitis profile negative. Right upper quadrant ultrasound negative. Continue daily labs. Avoid Tylenol. 8. URI/sinusitis/cough. Patient is afebrile. WBC noted to be 13.3. Patient with productive cough. Will check CXR. Patient has multiple allergies including penicillin, cephalosporin, sulfa. Will add Zithromax 500 mg by mouth 1 today and 250 mg by mouth 4 days then discontinue. VS, I&O, 24H, [facility] Vital Signs/I&O Vital Signs Date Time Temp Pulse Resp B/P (MAP) Pulse Ox O2 Delivery O2 Flow Rate FiO2 04/27/17 06:46 98.6 81 18 114/64 (81) Room Air 04/24/17 18:00 99 Laboratory Data 24H LABS Laboratory Tests 2 04/27/17 07:36: Nucleated Red Blood Cells % (auto) 0.0, Anion Gap 8, Glomerular Filtration Rate 56.3L, Blood Urea Nitrogen 15, Creatinine 1.12H, Sodium Level 139, Potassium Level 3.9, Chloride Level 104, Carbon Dioxide Level 27, Calcium Level 8.2L, Aspartate Amino Transf (AST/SGOT) 300H, Alanine Aminotransferase (ALT/SGPT) 281H , Alkaline Phosphatase 75, Total Bilirubin 0.4, Total Protein 5.5L, Albumin 2.6L , Magnesium Level 1.8, Total Creatine Kinase 5813H, Albumin/Globulin Ratio 0.90L CBC/BMP Laboratory Tests 04/27/17 07:36 Red Blood Count 4.38, Mean Corpuscular Volume 83.1, Mean Corpuscular Hemoglobin 29.0, Mean Corpuscular Hemoglobin Concent 34.9, Red Cell Distribution Width 14.6 H, Calcium Level 8.2 L, Aspartate Amino Transf (AST/SGOT) 300 H, Alanine Aminotransferase (ALT/SGPT) 281 H, Alkaline Phosphatase 75, Total Bilirubin 0.4 , Total Protein 5.5 L, Albumin 2.6 L Juhi Alvarado Apr 27, 2017 11:50
--- NOTE | 2017-04-27 14:23 | REP ---
Chest x-ray: Two views. History: Cough . Comparison study: No comparison . Findings: The lungs are well inflated and free of infiltrate. The pleural angles are sharp. The heart size is normal. Pulmonary vasculature is not increased. No significant bony abnormality is seen. Impression: Negative chest x-ray. Signed by Blaine Abrams MD 04/27/2017 02:15 P
[2017-04-27 18:00] VITALS: BP 121/70
--- NOTE | 2017-04-27 21:16 | MHIPNPDOC ---
[facility] Progress Note Progress Note DATE OF SERVICE: 04/27/17 HISTORY: As per Dr. Cosme: " 46-year-old female with history of bipolar disorder and anxiety admitted to our unit on a 9.39 legal status. According to the record, the patient is a dependent that was brought to our emergency department after she overdosed on unknown number of Lexapro, hydroxyzine, and amitriptyline and she does not know if she took some other type of medication. The patient stated that she believed she took approximately 20 tablets of amitriptyline, but she is not sure. The patient was making a statement such as , "I want to be normal". The patient admits that when she gets depressed she has a tendency to drink more. She says that she was drinking approximately two times a week. The last time she drank she says that she drank 8 beers and 5 shots o whiskey. During the interview, the patient admits to feeling depressed , hopeless, and helpless with low energy. The patient also reports auditory hallucinations, hears like "music" when everything is very quiet. The patient does not have other psychotic symptoms. The patient has been treated with Lexapro, Topamax, BuSpar and Vistaril. She is getting her treatment at [facility]." VITAL SIGNS: See below. NEW TEST RESULTS: 04/27/17 07:36: Nucleated Red Blood Cells % (auto) 0.0, Anion Gap 8, Glomerular Filtration Rate 56.3L, Blood Urea Nitrogen 15, Creatinine 1.12H, Sodium Level 139, Potassium Level 3.9, Chloride Level 104, Carbon Dioxide Level 27, Calcium Level 8.2L, Aspartate Amino Transf (AST/SGOT) 300H, Alanine Aminotransferase (ALT/SGPT) 281H , Alkaline Phosphatase 75, Total Bilirubin 0.4, Total Protein 5.5L, Albumin 2.6L , Magnesium Level 1.8, Total Creatine Kinase 5813H, Albumin/Globulin Ratio 0.90L 04/27/17 15:50: Urine Appearance CLEAR, Urine Color STRAW, Urine pH 6.0, Urine Specific [place] 1.003, Urine Protein NEGATIVE, Urine Glucose (UA) NEGATIVE, Urine Ketones NEGATIVE, Urine Urobilinogen 0.2, Urine Bilirubin NEGATIVE, Urine Leukocyte Esterase NEGATIVE, Urine Blood 1+H, Urine Nitrite NEGATIVE, Urine WBC (Auto) 1, Urine RBC (Auto) 1, Urine Hyaline Casts (Auto) 0, Urine Bacteria (Auto) 1+H, Urine Squamous Epithelial Cells 1, Urine Mucus (Auto) SMALL, Urine Sperm (Auto) CURRENT MEDICATIONS: See below. MENTAL STATUS EXAMINATION: Patient is a 46-year old female, who is alert, cooperative, dressed in hospital clothes, fairly groomed, seen in her room with a book she's about to finish Speech: Spontaneous and fluent Language skills are Good Thought processes including: Intact. Thought content: Happy thoughts about reading her new book Abstract reasoning, and computation: Good Description of associations: Good Description of abnormal or psychotic thoughts: Denies SI/HI, A/V hallucinations , thought delusions. Judgment: Improving Insight: Improving Orientation: Oriented to place, person and situation Recent and remote memory> Fair Attention span and concentration: Fair Language: Normal Fund of knowledge: Good Mood: Euthimic Affect: Euthymic DIAGNOSES: 1. Unspecified depressive disorder. 2. Bipolar disorder by history. 3. Rule out alcohol abuse versus dependency. ASSESSMENT: Patient is anxious about being discharged, she is not insightful about the severity of her suicide attempt. she is refusing to go to groups because she says she is reading and that keeps her mind out of her problems. I explained she needs to learn coping skills. MANAGEMENT PLAN: continue with the same meds. TIME SPENT: 20 minutes. Vital Signs Vital Signs Date Time Temp Pulse Resp B/P (MAP) Pulse Ox O2 Delivery O2 Flow Rate FiO2 04/27/17 18:00 98.9 90 18 121/70 (87) 04/27/17 06:46 Room Air 04/24/17 18:00 99 Laboratory Data 24H Labs Laboratory Tests 2 04/27/17 07:36: Nucleated Red Blood Cells % (auto) 0.0, Anion Gap 8, Glomerular Filtration Rate 56.3L, Blood Urea Nitrogen 15, Creatinine 1.12H, Sodium Level 139, Potassium Level 3.9, Chloride Level 104, Carbon Dioxide Level 27, Calcium Level 8.2L, Aspartate Amino Transf (AST/SGOT) 300H, Alanine Aminotransferase (ALT/SGPT) 281H , Alkaline Phosphatase 75, Total Bilirubin 0.4, Total Protein 5.5L, Albumin 2.6L , Magnesium Level 1.8, Total Creatine Kinase 5813H, Albumin/Globulin Ratio 0.90L 04/27/17 15:50: Urine Appearance CLEAR, Urine Color STRAW, Urine pH 6.0, Urine Specific [place] 1.003, Urine Protein NEGATIVE, Urine Glucose (UA) NEGATIVE, Urine Ketones NEGATIVE, Urine Urobilinogen 0.2, Urine Bilirubin NEGATIVE, Urine Leukocyte Esterase NEGATIVE, Urine Blood 1+H, Urine Nitrite NEGATIVE, Urine WBC (Auto) 1, Urine RBC (Auto) 1, Urine Hyaline Casts (Auto) 0, Urine Bacteria (Auto) 1+H, Urine Squamous Epithelial Cells 1, Urine Mucus (Auto) SMALL, Urine Sperm (Auto) CBC/BMP Laboratory Tests 04/27/17 07:36 Red Blood Count 4.38, Mean Corpuscular Volume 83.1, Mean Corpuscular Hemoglobin 29.0, Mean Corpuscular Hemoglobin Concent 34.9, Red Cell Distribution Width 14.6 H, Calcium Level 8.2 L, Aspartate Amino Transf (AST/SGOT) 300 H, Alanine Aminotransferase (ALT/SGPT) 281 H, Alkaline Phosphatase 75, Total Bilirubin 0.4 , Total Protein 5.5 L, Albumin 2.6 L Current Medications Current Medications Acetaminophen (Tylenol Tab) 650 mg Q6HP PRN PO HEADACHE or DISCOMFORT Last administered on 04/25/17 22:50; Start 04/23/17 at 10:30; Stop 04/26/17 at 17 :58; Status DC Al Hydrox/Mg Hydrox/Simethicone (Mylanta) 30 ml Q4HP PRN PO HEARTBURN/ INDIGESTION; Start 04/23/17 at 10:30; Stop 05/23/17 at 10:29 Azithromycin (Zithromax Tab) 250 mg DAILY PO ; Start 04/28/17 at 09:00; Stop 05/01/17 at 09:01 Escitalopram Oxalate (Lexapro) 20 mg DAILY PO Last administered on 04/27/17 09:30; Start 04/25/17 at 09:00; Stop 05/25/17 at 08:59 Home Med (Med Rec Complete!) ASDIRECTED XX ; Start 04/23/17 at 06:30; Stop at 06:30; Status DC Ibuprofen (Advil) 400 mg Q8H PO Last administered on 04/27/17 06:08; Start 04/26/17 at 22:00; Stop 04/27/17 at 11:51; Status DC Lidocaine (Lidoderm Patch) 1 patch DAILY TD ; Start 04/27/17 at 09:00; Stop at 08:59; Status Cancel Lidocaine (Lidoderm Patch) 1 patch QHS TD ; Start 04/26/17 at 21:00; Stop at 20:59 Magnesium Hydroxide (Milk Of Magnesia) 30 ml DAILYPRN PRN PO CONSTIPATION; Start 04/23/17 at 10:30; Stop 05/23/17 at 10:29 Nicotine (Nicoderm Cq 21mg) 1 patch DAILY TD ; Start 04/23/17 at 10:30; Stop 04/24/17 at 08:44; Status DC Non-Formulary Medication ( See Comment Field Below ) REMOVE LIDODERM PATCH DAILY XX Last administered on 04/27/17t 09:33; Start 04/27/17 at 09:00; Stop 05/27/17 at 08:59 Non-Formulary Medication ( See Comment Field Below ) REMOVE LIDODERM PATCH DAILY@21 XX ; Start 04/26/17 at 21:00; Stop 04/26/17 at 21:00; Status DC Trazodone HCl (Desyrel) 50 mg QHSP PRN PO INSOMNIA; Start 04/23/17 at 10:30; Stop 05/23/17 at 10:29 Allergies Coded Allergies: Sulfa Antibiotics (Verified Allergy, Severe, 04/23/17) Cephalosporins (Unverified Allergy, Unknown, 04/23/17) Penicillins (Verified Allergy, Unknown, 04/23/17) DARREL POSEY MD Apr 27, 2017 21:16
[2017-04-27] MEDS: LIDOCAINE 5% (LIDODERM) PATCH TD SCH (21:53)
[2017-04-28 06:55] VITALS: BP 111/71
[2017-04-28 07:51] LABS: MEAN CORPUSCULAR HEMOGLOBIN 29.2 pg (27.0-33.0); MEAN CORPUSCULAR HGB CONC 34.5 g/dl (32.0-36.5); MEAN CORPUSCULAR VOLUME 84.5 fl (80.0-96.0); PLATELET COUNT, AUTOMATED 244 10^3/uL (150-450); RED CELL DISTRIBUTION WIDTH 14.6 % (11.5-14.5)
[2017-04-28 08:24] LABS: ALBUMIN 2.8 GM/DL (3.2-5.2); ALKALINE PHOSPHATASE 72 U/L (45-117); ALT/SGPT 240 U/L (12-78); ANION GAP 7 MEQ/L (8-16); AST/SGOT 224 U/L (7-37); BILIRUBIN,TOTAL 0.4 MG/DL (0.2-1.0); BLOOD UREA NITROGEN 13 MG/DL (7-18); CALCIUM LEVEL 8.2 MG/DL (8.5-10.1); CARBON DIOXIDE LEVEL 28 MEQ/L (21-32); CHLORIDE LEVEL 106 MEQ/L (98-107); CREATININE FOR GFR 0.96 MG/DL (0.55-1.02); GLOMERULAR FILTRATION RATE > 60.0 (>58); GLUCOSE, FASTING 96 MG/DL (70-105); POTASSIUM SERUM 3.6 MEQ/L (3.5-5.1); SODIUM LEVEL 141 MEQ/L (136-145); TOTAL PROTEIN 5.6 GM/DL (6.4-8.2)
[2017-04-28] MEDS: ESCITALOPRAM OXALATE 10 MG TAB (LEXAPRO) PO SCH (09:38)
[2017-04-28] MEDS: AZITHROMYCIN 250 MG TAB PO SCH (09:38)
[2017-04-28] MEDS: **NOTE PATIENT COMMENT** MISC XX SCH (09:40)
--- NOTE | 2017-04-28 19:24 | MHIPNPDOC ---
[facility] Progress Note Progress Note DATE OF SERVICE: 04/28/17 HISTORY: DATE OF SERVICE: 04/28/17 HISTORY: As per Dr. Cosme: " 46-year-old female with history of bipolar disorder and anxiety admitted to our unit on a 9.39 legal status. According to the record, the patient is a dependent that was brought to our emergency department after she overdosed on unknown number of Lexapro, hydroxyzine, and amitriptyline and she does not know if she took some other type of medication. The patient stated that she believed she took approximately 20 tablets of amitriptyline, but she is not sure. The patient was making a statement such as , "I want to be normal". The patient admits that when she gets depressed she has a tendency to drink more. She says that she was drinking approximately two times a week. The last time she drank she says that she drank 8 beers and 5 shots o whiskey. During the interview, the patient admits to feeling depressed , hopeless, and helpless with low energy. The patient also reports auditory hallucinations, hears like "music" when everything is very quiet. The patient does not have other psychotic symptoms. The patient has been treated with Lexapro, Topamax, BuSpar and Vistaril. She is getting her treatment at [facility]." VITAL SIGNS: See below. NEW TEST RESULTS: Nucleated Red Blood Cells % (auto) 0.0, Anion Gap 7L, Glomerular Filtration Rate > 60.0, Blood Urea Nitrogen 13, Creatinine 0.96, Sodium Level 141, Potassium Level 3.6, Chloride Level 106, Carbon Dioxide Level 28, Calcium Level 8.2L, Aspartate Amino Transf (AST/SGOT) 224H, Alanine Aminotransferase (ALT/SGPT) 240H, Alkaline Phosphatase 72, Total Bilirubin 0.4, Total Protein 5.6L, Albumin 2.8L, Magnesium Level 2.0, Total Creatine Kinase 3902H, Albumin/Globulin Ratio 1.00 CBC/BMP Laboratory Tests 04/28/17 07:41 Red Blood Count 4.01, Mean Corpuscular Volume 84.5, Mean Corpuscular Hemoglobin 29.2, Mean Corpuscular Hemoglobin Concent 34.5, Red Cell Distribution Width 14.6 H, Calcium Level 8.2 L, Aspartate Amino Transf (AST/SGOT) 224 H, Alanine Aminotransferase (ALT/SGPT) 240 H, Alkaline Phosphatase 72, Total Bilirubin 0.4 , Total Protein 5.6 L, Albumin 2.8 L CURRENT MEDICATIONS: See below. MENTAL STATUS EXAMINATION: Patient is a 46-year old female, who is alert, dressed in personal clothes, cooperative, pleasant, with good eye contact, good rapport, cooperative. Speech: Is Coherent. Language skills are Good. Thought processes including: Intact. Thought content: Focused on her discharge. Abstract reasoning, and computation: Fair. Description of associations: Good. Description of abnormal or psychotic thoughts: Denies SI/denies HI, denies A/V hallucinations, denies thought delusions. Judgment: Limited Insight: Limited. Orientation: x 3 Recent and remote memory: Intact Attention span and concentration: Good. Language: Fair. Fund of knowledge: Good. Mood: Brighter, euthymic. Affect: Brighter, euthymic. DIAGNOSES: 1. Unspecified depressive disorder. 2. Bipolar disorder by history. 3. Rule out alcohol abuse versus dependency. ASSESSMENT: Patient's mood and affect have improved a lot, she is talkative, her facial expression is happy, she is goal directed, she wants to go home and has asked several times when she will be going back home. She was informed this check writer is waiting for her lab results to improve and her mood too.She had a serious overdose and I want to make sure she is safe before discahrge MANAGEMENT PLAN: Will continue on the same treatment plan. Patient needs to learn coping skills and she will need to adress her alcohol abuse. She needs rehab. TIME SPENT: 20 minutes. Vital Signs Vital Signs Date Time Temp Pulse Resp B/P (MAP) Pulse Ox O2 Delivery O2 Flow Rate FiO2 04/28/17 06:55 98.0 80 16 111/71 (84) Room Air 04/24/17 18:00 99 Laboratory Data 24H Labs Laboratory Tests 2 04/28/17 07:41: Nucleated Red Blood Cells % (auto) 0.0, Anion Gap 7L, Glomerular Filtration Rate > 60.0, Blood Urea Nitrogen 13, Creatinine 0.96, Sodium Level 141, Potassium Level 3.6, Chloride Level 106, Carbon Dioxide Level 28, Calcium Level 8.2L, Aspartate Amino Transf (AST/SGOT) 224H, Alanine Aminotransferase (ALT/SGPT ) 240H, Alkaline Phosphatase 72, Total Bilirubin 0.4, Total Protein 5.6L, Albumin 2.8L, Magnesium Level 2.0, Total Creatine Kinase 3902H, Albumin/ Globulin Ratio 1.00 CBC/BMP Laboratory Tests 04/28/17 07:41 Red Blood Count 4.01, Mean Corpuscular Volume 84.5, Mean Corpuscular Hemoglobin 29.2, Mean Corpuscular Hemoglobin Concent 34.5, Red Cell Distribution Width 14.6 H, Calcium Level 8.2 L, Aspartate Amino Transf (AST/SGOT) 224 H, Alanine Aminotransferase (ALT/SGPT) 240 H, Alkaline Phosphatase 72, Total Bilirubin 0.4 , Total Protein 5.6 L, Albumin 2.8 L Current Medications Current Medications Acetaminophen (Tylenol Tab) 650 mg Q6HP PRN PO HEADACHE or DISCOMFORT Last administered on 04/25/17 22:50; Start 04/23/17 at 10:30; Stop 04/26/17 at 17 :58; Status DC Al Hydrox/Mg Hydrox/Simethicone (Mylanta) 30 ml Q4HP PRN PO HEARTBURN/ INDIGESTION; Start 04/23/17 at 10:30; Stop 05/23/17 at 10:29 Azithromycin (Zithromax Tab) 250 mg DAILY PO Last administered on 04/28/17 09 :38; Start 04/28/17 at 09:00; Stop 05/01/17 at 09:01 Escitalopram Oxalate (Lexapro) 20 mg DAILY PO Last administered on 04/28/17 09:38; Start 04/25/17 at 09:00; Stop 05/25/17 at 08:59 Home Med (Med Rec Complete!) ASDIRECTED XX ; Start 04/23/17 at 06:30; Stop at 06:30; Status DC Ibuprofen (Advil) 400 mg Q8H PO Last administered on 04/27/17 06:08; Start 04/26/17 at 22:00; Stop 04/27/17 at 11:51; Status DC Lidocaine (Lidoderm Patch) 1 patch DAILY TD ; Start 04/27/17 at 09:00; Stop at 08:59; Status Cancel Lidocaine (Lidoderm Patch) 1 patch DAILY@2100 TD ; Start 04/28/17 at 21:00; Stop 05/28/17 at 20:59 Lidocaine (Lidoderm Patch) 1 patch QHS TD Last administered on 04/27/17 21:53 ; Start 04/26/17 at 21:00; Stop 05/26/17 at 20:59 Magnesium Hydroxide (Milk Of Magnesia) 30 ml DAILYPRN PRN PO CONSTIPATION; Start 04/23/17 at 10:30; Stop 05/23/17 at 10:29 Nicotine (Nicoderm Cq 21mg) 1 patch DAILY TD ; Start 04/23/17 at 10:30; Stop 04/24/17 at 08:44; Status DC Non-Formulary Medication ( See Comment Field Below ) REMOVE LIDODERM PATCH DAILY XX Last administered on 04/28/17 09:40; Start 04/27/17 at 09:00; Stop 05/27/17 at 08:59 Non-Formulary Medication ( See Comment Field Below ) REMOVE LIDODERM PATCH DAILY XX ; Start 04/29/17 at 09:00; Stop 05/29/17 at 08:59 Non-Formulary Medication ( See Comment Field Below ) REMOVE LIDODERM PATCH DAILY@21 XX ; Start 04/26/17 at 21:00; Stop 04/26/17 at 21:00; Status DC Trazodone HCl (Desyrel) 50 mg QHSP PRN PO INSOMNIA; Start 04/23/17 at 10:30; Stop 05/23/17 at 10:29 Allergies Coded Allergies: Sulfa Antibiotics (Verified Allergy, Severe, 04/23/17) Cephalosporins (Unverified Allergy, Unknown, 04/23/17) Penicillins (Verified Allergy, Unknown, 04/23/17) DARREL POSEY MD Apr 28, 2017 19:24
[2017-04-28] MEDS: traZODone 50 MG TAB PO PRN (21:53)
[2017-04-28] MEDS: LIDOCAINE 5% (LIDODERM) PATCH TD SCH ×2 (22:11→22:12)
[2017-04-28 22:17] VITALS: BP 113/65
[2017-04-29 06:20] VITALS: BP 113/65
[2017-04-29 08:28] LABS: MEAN CORPUSCULAR HEMOGLOBIN 28.9 pg (27.0-33.0); MEAN CORPUSCULAR HGB CONC 34.3 g/dl (32.0-36.5); MEAN CORPUSCULAR VOLUME 84.4 fl (80.0-96.0); PLATELET COUNT, AUTOMATED 215 10^3/uL (150-450); RED CELL DISTRIBUTION WIDTH 14.7 % (11.5-14.5); WHITE BLOOD COUNT 6.6 10^3/uL (4.0-10.0)
[2017-04-29 09:01] LABS: ALBUMIN 2.5 GM/DL (3.2-5.2); ALBUMIN/GLOBULIN RATIO 1.04 (1.00-1.93); ALKALINE PHOSPHATASE 65 U/L (45-117); ALT/SGPT 189 U/L (12-78); ANION GAP 6 MEQ/L (8-16); AST/SGOT 149 U/L (7-37); BILIRUBIN,TOTAL 0.3 MG/DL (0.2-1.0); BLOOD UREA NITROGEN 13 MG/DL (7-18); CALCIUM LEVEL 7.7 MG/DL (8.5-10.1); CARBON DIOXIDE LEVEL 29 MEQ/L (21-32); CHLORIDE LEVEL 106 MEQ/L (98-107); CREATININE FOR GFR 0.98 MG/DL (0.55-1.02); GLOMERULAR FILTRATION RATE > 60.0 (>58); GLUCOSE, FASTING 192 MG/DL (70-105); POTASSIUM SERUM 3.4 MEQ/L (3.5-5.1); SODIUM LEVEL 141 MEQ/L (136-145); TOTAL PROTEIN 4.9 GM/DL (6.4-8.2)
[2017-04-29] MEDS: ESCITALOPRAM OXALATE 10 MG TAB (LEXAPRO) PO SCH (09:17)
[2017-04-29] MEDS: AZITHROMYCIN 250 MG TAB PO SCH (09:17)
[2017-04-29] MEDS: **NOTE PATIENT COMMENT** MISC XX SCH ×2 (09:29→09:30)
[2017-04-29] MEDS ORDERED: POTASSIUM CHLORIDE 10 MEQ SR TABLET PO ONE (12:45)
[2017-04-29 18:00] VITALS: BP 110/60
[2017-04-29] MEDS: LIDOCAINE 5% (LIDODERM) PATCH TD SCH ×2 (21:07→21:08)
[2017-04-29] MEDS: traZODone 50 MG TAB PO PRN (21:07)
[2017-04-30 06:43] LABS: MEAN CORPUSCULAR HGB CONC 34.4 g/dl (32.0-36.5); MEAN CORPUSCULAR VOLUME 84.3 fl (80.0-96.0); PLATELET COUNT, AUTOMATED 245 10^3/uL (150-450); RED CELL DISTRIBUTION WIDTH 14.9 % (11.5-14.5); WHITE BLOOD COUNT 7.3 10^3/uL (4.0-10.0)
[2017-04-30 07:05] VITALS: BP 98/58
[2017-04-30 07:20] LABS: ALBUMIN 2.5 GM/DL (3.2-5.2); ALKALINE PHOSPHATASE 71 U/L (45-117); ALT/SGPT 162 U/L (12-78); ANION GAP 7 MEQ/L (8-16); AST/SGOT 102 U/L (7-37); BILIRUBIN,TOTAL 0.3 MG/DL (0.2-1.0); BLOOD UREA NITROGEN 10 MG/DL (7-18); CARBON DIOXIDE LEVEL 27 MEQ/L (21-32); CHLORIDE LEVEL 109 MEQ/L (98-107); CREATININE FOR GFR 0.79 MG/DL (0.55-1.02); FERRITIN 32 NG/ML (8-252); GLOMERULAR FILTRATION RATE > 60.0 (>58); GLUCOSE, FASTING 94 MG/DL (70-105); MAGNESIUM LEVEL 2.1 MG/DL (1.8-2.4); PERCENT SATURATION 15.8 % (13.2-45.0); POTASSIUM SERUM 3.6 MEQ/L (3.5-5.1); SODIUM LEVEL 143 MEQ/L (136-145); TOTAL IRON BINDING CAPACITY 228 UG/DL (250-450)
[2017-04-30] MEDS: **NOTE PATIENT COMMENT** MISC XX SCH ×2 (09:00)
[2017-04-30] MEDS: AZITHROMYCIN 250 MG TAB PO SCH (09:45)
[2017-04-30] MEDS: ESCITALOPRAM OXALATE 10 MG TAB (LEXAPRO) PO SCH (09:45)
[2017-04-30 18:00] VITALS: BP 113/52
[2017-04-30] MEDS: traZODone 50 MG TAB PO PRN (21:24)
[2017-04-30] MEDS: LIDOCAINE 5% (LIDODERM) PATCH TD SCH ×2 (21:24→21:25)
[2017-05-01 06:43] VITALS: BP 97/51
[2017-05-01] MEDS: AZITHROMYCIN 250 MG TAB PO SCH (08:17)
[2017-05-01] MEDS: ESCITALOPRAM OXALATE 10 MG TAB (LEXAPRO) PO SCH (08:17)
[2017-05-01] MEDS: **NOTE PATIENT COMMENT** MISC XX SCH ×2 (08:21)
[2017-05-01 18:00] VITALS: BP 118/63
[2017-05-01] MEDS: traZODone 50 MG TAB PO PRN (22:11)
[2017-05-01] MEDS: LIDOCAINE 5% (LIDODERM) PATCH TD SCH ×2 (22:12)
--- NOTE | 2017-05-01 22:15 | MHIPNPDOC ---
[facility] Progress Note Progress Note DATE OF SERVICE: 04/29/17 HISTORY: As per Dr. Cosme: " 46-year-old female with history of bipolar disorder and anxiety admitted to our unit on a 9.39 legal status. According to the record, the patient is a dependent that was brought to our emergency department after she overdosed on unknown number of Lexapro, hydroxyzine, and amitriptyline and she does not know if she took some other type of medication. The patient stated that she believed she took approximately 20 tablets of amitriptyline, but she is not sure. The patient was making a statement such as , "I want to be normal". The patient admits that when she gets depressed she has a tendency to drink more. She says that she was drinking approximately two times a week. The last time she drank she says that she drank 8 beers and 5 shots o whiskey. During the interview, the patient admits to feeling depressed , hopeless, and helpless with low energy. The patient also reports auditory hallucinations, hears like "music" when everything is very quiet. The patient does not have other psychotic symptoms. The patient has been treated with Lexapro, Topamax, BuSpar and Vistaril. She is getting her treatment at [facility]." VITAL SIGNS: See below. NEW TEST RESULTS: N/A CURRENT MEDICATIONS: See below. MENTAL STATUS EXAMINATION: Patient is a 46-year old female, who is alert, dressed in personal clothes, cooperative, pleasant, with good eye contact, good rapport, cooperative. Speech: Is normal in tone, rate and volume Language skills are Good. Thought processes including: Coherent Thought content: Focused on her discharge. Abstract reasoning, and computation: Good Description of associations: Good. Description of abnormal or psychotic thoughts: Denies SI/denies HI, denies A/V hallucinations, denies thought delusions. Judgment: Improving Insight: Improving Orientation: x 3 Recent and remote memory: Intact Attention span and concentration: Good. Language: Good Fund of knowledge: Good. Mood: Brighter, euthymic. Affect: Brighter, euthymic. DIAGNOSES: 1. Unspecified depressive disorder. 2. Bipolar disorder by history. 3. Rule out alcohol abuse versus dependency. ASSESSMENT: Patient's mood has improved, her CK, AST and ALT are still very elevated. We will wait until this lab values normalized and will wait until her mood remains right for a couple of days area since her overdose was very serious. Patient was seen socializing in the lounge with other patients, she was playing cards. She is not as isolative as she was previously and she has been attending some groups. MANAGEMENT PLAN: Will continue on the same treatment plan. We'll continue to encourage her to attend groups. TIME SPENT: 20 minutes. Vital Signs Vital Signs Date Time Temp Pulse Resp B/P (MAP) Pulse Ox O2 Delivery O2 Flow Rate FiO2 05/01/17 18:00 98.9 84 16 118/63 (81) 04/30/17 07:05 Room Air Current Medications Current Medications Acetaminophen (Tylenol Tab) 650 mg Q6HP PRN PO HEADACHE or DISCOMFORT Last administered on 04/25/17 22:50; Start 04/23/17 at 10:30; Stop 04/26/17 at 17 :58; Status DC Al Hydrox/Mg Hydrox/Simethicone (Mylanta) 30 ml Q4HP PRN PO HEARTBURN/ INDIGESTION; Start 04/23/17 at 10:30; Stop 05/23/17 at 10:29 Azithromycin (Zithromax Tab) 250 mg DAILY PO Last administered on 05/01/17 08: 17; Start 04/28/17 at 09:00; Stop 05/01/17 at 09:01; Status DC Escitalopram Oxalate (Lexapro) 20 mg DAILY PO Last administered on 05/01/17 08 :17; Start 04/25/17 at 09:00; Stop 05/25/17 at 08:59 Home Med (Med Rec Complete!) ASDIRECTED XX ; Start 04/23/17 at 06:30; Stop at 06:30; Status DC Ibuprofen (Advil) 400 mg Q8H PO Last administered on 04/27/17 06:08; Start 04/26/17 at 22:00; Stop 04/27/17 at 11:51; Status DC Lidocaine (Lidoderm Patch) 1 patch DAILY TD ; Start 04/27/17 at 09:00; Stop at 08:59; Status Cancel Lidocaine (Lidoderm Patch) 1 patch DAILY@2100 TD Last administered on 21:25; Start 04/28/17 at 21:00; Stop 05/28/17 at 20:59 Lidocaine (Lidoderm Patch) 1 patch QHS TD Last administered on 04/30/17 21:24 ; Start 04/26/17 at 21:00; Stop 05/26/17 at 20:59 Magnesium Hydroxide (Milk Of Magnesia) 30 ml DAILYPRN PRN PO CONSTIPATION; Start 04/23/17 at 10:30; Stop 05/23/17 at 10:29 Nicotine (Nicoderm Cq 21mg) 1 patch DAILY TD ; Start 04/23/17 at 10:30; Stop 04/24/17 at 08:44; Status DC Non-Formulary Medication ( See Comment Field Below ) REMOVE LIDODERM PATCH DAILY XX Last administered on 05/01/17 08:21; Start 04/27/17 at 09:00; Stop 05/27/17 at 08:59 Non-Formulary Medication ( See Comment Field Below ) REMOVE LIDODERM PATCH DAILY XX Last administered on 05/01/17 08:21; Start 04/29/17 at 09:00; Stop 05/29/17 at 08:59 Non-Formulary Medication ( See Comment Field Below ) REMOVE LIDODERM PATCH DAILY@21 XX ; Start 04/26/17 at 21:00; Stop 04/26/17 at 21:00; Status DC Trazodone HCl (Desyrel) 50 mg QHSP PRN PO INSOMNIA Last administered on 21:24; Start 04/23/17 at 10:30; Stop 05/23/17 at 10:29 Allergies Coded Allergies: Sulfa Antibiotics (Verified Allergy, Severe, 04/23/17) Cephalosporins (Unverified Allergy, Unknown, 04/23/17) Penicillins (Verified Allergy, Unknown, 04/23/17) DARREL POSEY MD May 01, 2017 22:15
[2017-05-02 07:19] VITALS: BP 109/69
[2017-05-02] MEDS: ESCITALOPRAM OXALATE 10 MG TAB (LEXAPRO) PO SCH (08:38)
[2017-05-02] MEDS: FERROUS SULFATE 325MG TAB PO SCH (08:38)
[2017-05-02] MEDS: **NOTE PATIENT COMMENT** MISC XX SCH ×2 (08:41)
[2017-05-02 10:36] LABS: VITAMIN B12 LEVEL > 2000 PG/ML (247-911)
[2017-05-02 10:37] LABS: FOLATE 16.4 NG/ML (>5.4)
[2017-05-02 18:00] VITALS: BP 111/61
--- NOTE | 2017-05-02 20:01 | MHIPNPDOC ---
[facility] Progress Note Progress Note DATE OF SERVICE: 05/02/17 HISTORY: As per Dr. Cosme: " 46-year-old female with history of bipolar disorder and anxiety admitted to our unit on a 9.39 legal status. According to the record, the patient is a dependent that was brought to our emergency department after she overdosed on unknown number of Lexapro, hydroxyzine, and amitriptyline and she does not know if she took some other type of medication. The patient stated that she believed she took approximately 20 tablets of amitriptyline, but she is not sure. The patient was making a statement such as , "I want to be normal". The patient admits that when she gets depressed she has a tendency to drink more. She says that she was drinking approximately two times a week. The last time she drank she says that she drank 8 beers and 5 shots o whiskey. During the interview, the patient admits to feeling depressed , hopeless, and helpless with low energy. The patient also reports auditory hallucinations, hears like "music" when everything is very quiet. The patient does not have other psychotic symptoms. The patient has been treated with Lexapro, Topamax, BuSpar and Vistaril. She is getting her treatment at [facility]." VITAL SIGNS: See below. NEW TEST RESULTS: N/A CURRENT MEDICATIONS: See below. MENTAL STATUS EXAMINATION: Patient is a 46-year old female, who is alert, dressed in personal clothes, cooperative, pleasant, with good eye contact, good rapport, cooperative. Speech: Is spontaneous and fluent Language skills are Good. Thought processes including: Incoherent Thought content: Focused on her discharge. Abstract reasoning, and computation: Fair Description of associations: Good. Description of abnormal or psychotic thoughts: Denies SI/denies HI, denies A/V hallucinations, denies thought delusions. Judgment: Improving Insight: Improving Orientation: x 3 Recent and remote memory: Good Attention span and concentration: Intact Language: Good Fund of knowledge: Good. Mood: Brighter, euthymic. Affect: Brighter, euthymic. DIAGNOSES: 1. Unspecified depressive disorder. 2. Bipolar disorder by history. 3. Rule out alcohol abuse versus dependency. ASSESSMENT: Patient is still not very insightful about her current situation. She doesn't realize how much damage she has done to her body. MANAGEMENT PLAN: Will continue on the same treatment plan. We'll continue to encourage her to attend groups. TIME SPENT: 20 minutes. Vital Signs Vital Signs Date Time Temp Pulse Resp B/P (MAP) Pulse Ox O2 Delivery O2 Flow Rate FiO2 05/02/17 18:00 99.2 73 16 111/61 (78) 04/30/17 07:05 Room Air Current Medications Current Medications Acetaminophen (Tylenol Tab) 650 mg Q6HP PRN PO HEADACHE or DISCOMFORT Last administered on 04/25/17 22:50; Start 04/23/17 at 10:30; Stop 04/26/17 at 17 :58; Status DC Al Hydrox/Mg Hydrox/Simethicone (Mylanta) 30 ml Q4HP PRN PO HEARTBURN/ INDIGESTION; Start 04/23/17 at 10:30; Stop 05/23/17 at 10:29 Azithromycin (Zithromax Tab) 250 mg DAILY PO Last administered on 05/01/17 08: 17; Start 04/28/17 at 09:00; Stop 05/01/17 at 09:01; Status DC Escitalopram Oxalate (Lexapro) 20 mg DAILY PO Last administered on 05/02/17 08 :38; Start 04/25/17 at 09:00; Stop 05/25/17 at 08:59 Ferrous Sulfate (Ferrous Sulfate) 325 mg DAILY PO Last administered on 08:38; Start 05/02/17 at 09:00; Stop 06/01/17 at 08:59 Home Med (Med Rec Complete!) ASDIRECTED XX ; Start 04/23/17 at 06:30; Stop at 06:30; Status DC Ibuprofen (Advil) 400 mg Q8H PO Last administered on 04/27/17 06:08; Start 04/26/17 at 22:00; Stop 04/27/17 at 11:51; Status DC Lidocaine (Lidoderm Patch) 1 patch DAILY TD ; Start 04/27/17 at 09:00; Stop at 08:59; Status Cancel Lidocaine (Lidoderm Patch) 1 patch DAILY@2100 TD Last administered on 22:12; Start 04/28/17 at 21:00; Stop 05/28/17 at 20:59 Lidocaine (Lidoderm Patch) 1 patch QHS TD Last administered on 05/01/17 22:12 ; Start 04/26/17 at 21:00; Stop 05/26/17 at 20:59 Magnesium Hydroxide (Milk Of Magnesia) 30 ml DAILYPRN PRN PO CONSTIPATION; Start 04/23/17 at 10:30; Stop 05/23/17 at 10:29 Nicotine (Nicoderm Cq 21mg) 1 patch DAILY TD ; Start 04/23/17 at 10:30; Stop 04/24/17 at 08:44; Status DC Non-Formulary Medication ( See Comment Field Below ) REMOVE LIDODERM PATCH DAILY XX Last administered on 05/02/17 08:41; Start 04/27/17 at 09:00; Stop 05/27/17 at 08:59 Non-Formulary Medication ( See Comment Field Below ) REMOVE LIDODERM PATCH DAILY XX Last administered on 05/02/17 08:41; Start 04/29/17 at 09:00; Stop 05/29/17 at 08:59 Non-Formulary Medication ( See Comment Field Below ) REMOVE LIDODERM PATCH DAILY@21 XX ; Start 04/26/17 at 21:00; Stop 04/26/17 at 21:00; Status DC Trazodone HCl (Desyrel) 50 mg QHSP PRN PO INSOMNIA Last administered on 22:11; Start 04/23/17 at 10:30; Stop 05/23/17 at 10:29 Allergies Coded Allergies: Sulfa Antibiotics (Verified Allergy, Severe, 04/23/17) Cephalosporins (Unverified Allergy, Unknown, 04/23/17) Penicillins (Verified Allergy, Unknown, 04/23/17) DARREL POSEY MD May 02, 2017 20:01
[2017-05-02] MEDS: traZODone 50 MG TAB PO PRN (21:59)
[2017-05-02] MEDS: LIDOCAINE 5% (LIDODERM) PATCH TD SCH ×2 (22:16)
[2017-05-03 07:00] VITALS: BP 92/53
[2017-05-03 07:54] LABS: ALBUMIN 2.9 GM/DL (3.2-5.2); ALBUMIN/GLOBULIN RATIO 1.04 (1.00-1.93); ALKALINE PHOSPHATASE 86 U/L (45-117); ALT/SGPT 109 U/L (12-78); ANION GAP 6 MEQ/L (8-16); AST/SGOT 49 U/L (7-37); BILIRUBIN,TOTAL 0.3 MG/DL (0.2-1.0); BLOOD UREA NITROGEN 8 MG/DL (7-18); CALCIUM LEVEL 8.4 MG/DL (8.5-10.1); CARBON DIOXIDE LEVEL 31 MEQ/L (21-32); CHLORIDE LEVEL 106 MEQ/L (98-107); CREATININE FOR GFR 0.88 MG/DL (0.55-1.02); GLOMERULAR FILTRATION RATE > 60.0 (>58); GLUCOSE, FASTING 92 MG/DL (70-105); POTASSIUM SERUM 3.8 MEQ/L (3.5-5.1); SODIUM LEVEL 143 MEQ/L (136-145); TOTAL PROTEIN 5.7 GM/DL (6.4-8.2)
[2017-05-03] MEDS: FERROUS SULFATE 325MG TAB PO SCH (09:29)
[2017-05-03] MEDS: ESCITALOPRAM OXALATE 10 MG TAB (LEXAPRO) PO SCH (09:29)
[2017-05-03] MEDS: **NOTE PATIENT COMMENT** MISC XX SCH ×2 (09:30)
[2017-05-03] MEDS ORDERED: FERR1TAB8 PO (14:10)
[2017-05-03] MEDS ORDERED: TRAZO50TA PO (14:10)
[2017-05-03] MEDS ORDERED: LIDO5TD TD ×2 (14:10)
--- NOTE | 2017-05-03 14:15 | MHDSPDOC ---
[facility] Discharge Summary Discharge Summary DATE OF ADMISSION: Apr 23, 2017 at 10:20 DATE OF DISCHARGE: DISCHARGE DIAGNOSES: 1. Bipolar disorder, depressed 2. Alcohol use disorder REASON FOR ADMISSION: As per Dr. Cosme's note: "46-year-old female with history of bipolar disorder and anxiety admitted to our unit on a 9.39 legal status. According to the record, the patient is a dependent that was brought to our emergency department after she overdosed on unknown number of Lexapro, hydroxyzine, and amitriptyline and she does not know if she took some other type of medication.The patient stated that she believed she took approximately 20 tablets of amitriptyline, but she is not sure. The patient was making a statement such as, "I want to be normal". The patient admits that when she gets depressed she has a tendency to drink more. She says that she was drinking approximately two times a week. The last time she drank she says that she drank 8 beers and 5 shots of whiskey. During the interview, the patient admits to feeling depressed hopeless, and helpless with low energy. The patient also reports auditory hallucinations, hears like "music" when everything is very quiet. The patient does not have other psychotic symptoms. The patient has been treated with Lexapro, Topamax, BuSpar and Vistaril. She is getting her treatment at [facility]. CONSULTANTS INVOLVED: Upon admission, the patient was admitted to the medical Floor TREATMENT AND PROGRESS ON THE UNIT : The patient was resistant to attend groups , she always tried to minimize her overdose, tried to minimize her psychiatric illness and try to minimize the impact that the overdose had on her body. I tried to explain to her many times that her liver her muscles her heart her entire body has been at risk of collapsing but still she kept minimizing it. When I asked her to attend group she said that she was happy reading her [employer] books, that she read 52 books in a year and that her was on a bring her and book whenever she finished one. I told her that was excellent but that she still needed to attend groups to learn coping skills. I said, "if you will have been in such a good shape you will and have overdosed and you did". She can reading through her book. She always complaining of back pain and knee pain. She has bruises in her head and in her legs because it is not clear if she felt after she had overdosed. An x-ray was taken from her spine and he evidenced this bulges. Patient couldn't take Tylenol because she had overdosed on Tylenol in her liver function tests were normal, her liver enzymes were extremely elevated, and for that reason I decided to give her lidocaine patches and give her occasional ibuprofen, because this was less toxic for her than Tylenol. This remote mortgage underwriter decided not to put her on a mood stabilizer, because almost all of them caused liver problems, for that reason she was only on citalopram and trazodone. She didn't have any behavioral problems while she was at the unit, but initially she had remained isolative to her room was during the last 5 days that she came out and she socialized with peers and staff. I decided that even though she had improved her mood and was going to wait until her CK and liver enzymes were close to normal. The patient has been denying suicidal or homicidal thoughts, she has denied auditory or visual hallucinations and she has denied thought delusions. Initially she said that sometimes she heard music in her head but it was pleasant, not that frequent and not intense or disturbing. Yesterday, the patient finally paid attention to the severity of the damage on her body that she suffered as a consequence of the overdose. It was stated that she was going to go as soon as possible to her primary care provider as soon as she was discharged from this unit. She promised she was going to go as soon as possible, if possible tomorrow and she was going to go back to her psychiatrist at [facility]. HOSPITAL COURSE: As above DISCHARGE ASSESSMENT: Patient was alert and oriented x 3. she was not suicidal and not homicidal. She was not psychotic. she was not a danger to self or others. MENTAL STATUS EXAMINATION ON DISCHARGE: Patient is a 46-year old female, who is alert, dressed in personal clothes, pleasant and cooperative. Speech: Is spontaneous and fluent Language skills are Good. Thought processes including: Coherent Thought content: happy thoughts about being discharged Abstract reasoning, and computation: Fair Description of associations: Good. Description of abnormal or psychotic thoughts: Denies SI/denies HI, denies A/V hallucinations, denies thought delusions. Judgment: Improving Insight: Improving Orientation: x 3 Recent and remote memory: Good Attention span and concentration: Intact Language: Good Fund of knowledge: Good. Mood: Brighter, euthymic. Affect: Brighter, euthymic. DIAGNOSES: 1. Unspecified depressive disorder. 2. Bipolar disorder by history. 3. Rule out alcohol abuse versus dependency. MEDICATIONS ON DISCHARGE: Escitalopram Oxalate (Lexapro) 20 Mg Tab, 20 MG PO DAILY for DEPRESSION, ( Reported) Ferrous Sulfate (Ferrous Sulfate) 325 Mg Tab, 325 MG PO DAILY for ANEMIA, #10 Hydroxyzine HCl (Hydroxyzine HCl) 50 Mg Tab, 50 MG PO Q6HP for ANXIETY, ( Reported) Lidocaine (Lidocaine) 5 % Pad, 1 PATCH TD QHS for PAIN, #10 Lidocaine (Lidocaine) 5 % Pad, 1 PATCH TD DAILY@2100 for PAIN, #10 Loratadine (Loratadine) 10 Mg Tab, 10 MG PO DAILY for allergies, (Reported) Scheduled PRN Trazodone HCl (Trazodone HCl) 50 Mg Tab, 50 MG PO QHSP PRN for INSOMNIA, #10 PLAN/FOLLOWUP ARRANGEMENTS: * Mental Health Appt 1 * Mental Health [facility] * Established With This Provider Yes * Therapist DANE * Date May 03, 2017 * Time 10:00 * Address of Clinic or Practice [address] [place] [address] * * Additional information Pt has individual therapy and medication management through [facility]. Follow Up Care Education Label * Chemical Dependency Appt1 * Chemical Dependency [facility] * Established With This Provider No * Additional information Walk in hours- Tuesdays and from 8am to 5pm Follow Up Care Education Label * Chemical Dependency Appt2 * Chemical Dependency [facility] * Established With This Provider No * Additional information Walk in hours Mondays, Wednesdays, and - 730am-1030am, 1230pm-230pm Tuesdays 830am-1030am Fridays 8am-11am, 1pm-3pm Follow Up Care Education Label * Medical * Medical Follow Up [facility] * Therapist MAJ. MARTINEZ * Date May 06, 2017 * Time 15:00 * Address of Clinic or Practice [facility] * The amount of time spent in the coordination of care for this patient was approximately 30 minutes. Vital Signs/I&Os Vital Signs Date Time Temp Pulse Resp B/P (MAP) Pulse Ox O2 Delivery O2 Flow Rate FiO2 05/03/17 07:00 98.2 59 14 92/53 (66) 04/30/17 07:05 Room Air Laboratory Data Labs 24H Laboratory Tests 2 05/03/17 07:06: Anion Gap 6L, Glomerular Filtration Rate > 60.0, Blood Urea Nitrogen 8, Creatinine 0.88, Sodium Level 143, Potassium Level 3.8, Chloride Level 106, Carbon Dioxide Level 31, Calcium Level 8.4L, Aspartate Amino Transf (AST/SGOT) 49H, Alanine Aminotransferase (ALT/SGPT) 109H, Alkaline Phosphatase 86, Total Bilirubin 0.3, Total Protein 5.7L, Albumin 2.9L, Albumin/Globulin Ratio 1.04 05/03/17 10:25: Total Creatine Kinase 417H CBC/BMP Laboratory Tests 05/03/17 07:06 Calcium Level 8.4 L, Aspartate Amino Transf (AST/SGOT) 49 H, Alanine Aminotransferase (ALT/SGPT) 109 H, Alkaline Phosphatase 86, Total Bilirubin 0.3 , Total Protein 5.7 L, Albumin 2.9 L Microbiology Microbiology 04/27/17 Urine Culture - Final, Complete Medications Scheduled Escitalopram Oxalate (Lexapro) 20 Mg Tab, 20 MG PO DAILY for DEPRESSION, ( Reported) Ferrous Sulfate (Ferrous Sulfate) 325 Mg Tab, 325 MG PO DAILY for ANEMIA, #10 Hydroxyzine HCl (Hydroxyzine HCl) 50 Mg Tab, 50 MG PO Q6HP for ANXIETY, ( Reported) Lidocaine (Lidocaine) 5 % Pad, 1 PATCH TD QHS for PAIN, #10 Lidocaine (Lidocaine) 5 % Pad, 1 PATCH TD DAILY@2100 for PAIN, #10 Loratadine (Loratadine) 10 Mg Tab, 10 MG PO DAILY for allergies, (Reported) Scheduled PRN Trazodone HCl (Trazodone HCl) 50 Mg Tab, 50 MG PO QHSP PRN for INSOMNIA, #10 Allergies Coded Allergies: Sulfa Antibiotics (Verified Allergy, Severe, 04/23/17) Cephalosporins (Unverified Allergy, Unknown, 04/23/17) Penicillins (Verified Allergy, Unknown, 04/23/17) DARREL POSEY MD May 03, 2017 14:15
== END 2017-05-03 17:30 | disposition home or self-care (01) | DRG 885 ==
LOC: M ED 04:59 → M ED INP 10:20 → M PSY 11:30
PROVIDERS: ADMIT Psychiatry & Neurology Psychiatry; ATTEND Psychiatry & Neurology Psychiatry
DX: F31.9 Bipolar disorder, unspecified (principal); M62.82 Rhabdomyolysis; F10.10 Alcohol abuse, uncomplicated; F41.9 Anxiety disorder, unspecified; Z79.899 Other long term (current) drug therapy; Z88.2 Allergy status to sulfonamides; Z88.0 Allergy status to penicillin; Z88.8 Allergy status to other drugs, medicaments and biological substances; E03.9 Hypothyroidism, unspecified; M54.5 Low back pain; J30.9 Allergic rhinitis, unspecified

== ENCOUNTER 2017-05-06 16:41 | Emergency (ER) | payer OTHER ==
[~2017-05-06] VITALS: Ht 167.6 cm; Wt 73.2 kg
[~2017-05-06 16:41] MED LIST: ACET1TAB17 PO; AMIT25TA PO; BUSP10TA PO; FERR1TAB8 PO; HYDR50TA70 PO; LEXA1TAB2 PO; LIDO5TD TD; LORA10TA2 PO; MELO15TA4 PO; MOBI15TA PO; TOPI50TA9 PO; TRAZO50TA PO; TYLE325C PO
--- NOTE | 2017-05-06 18:43 | REP ---
HISTORY: Pain and swelling. TECHNIQUE: Multiple ultrasonographic images of the deep venous structures of the left thigh were obtained from the common femoral vein to the popliteal vein along with Doppler interrogation and color flow Doppler images. FINDINGS: There is no abnormal echogenic material seen within any of the visualized deep venous structures that would suggest acute thrombosis. Coaptation is unremarkable throughout. Doppler interrogation shows an expected response to respiratory variability and augmentation. The color flow images show what appears to be a normal vascular pattern throughout. IMPRESSION: There is no ultrasonographic evidence of deep venous thrombosis involving any of the visualized deep venous structures of the left thigh, as described above. Signed by Lino Hernandez DO 05/06/2017 07:08 P
[2017-05-06 18:51] VITALS: BP 133/75
== END 2017-05-06 18:53 | disposition home or self-care (01) ==
LOC: M ED 16:41
DX: R22.42 Localized swelling, mass and lump, left lower limb (principal); F41.9 Anxiety disorder, unspecified; F33.9 Major depressive disorder, recurrent, unspecified; Z79.899 Other long term (current) drug therapy; Z88.0 Allergy status to penicillin; Z88.1 Allergy status to other antibiotic agents; Z88.2 Allergy status to sulfonamides; Z87.891 Personal history of nicotine dependence; Z98.890 Other specified postprocedural states

== ENCOUNTER → 2019-03-15 | Outpatient (CLI) | payer OTHER ==
[~2019-03-15] MED LIST changes: -ACET1TAB17 PO; +ACET1TAB55 PO; +LORA-243 PO; -LORA10TA2 PO; +MELO15TA28 PO; -MELO15TA4 PO; +TRAZ1TAB10 PO; -TRAZO50TA PO
--- NOTE | 2019-03-15 17:15 | REPMRS ---
Patient History The patient states she has not had a clinical breast exam in over a year. Family history of colorectal cancer at age 50 or over in maternal grandmother, breast cancer under age 50 in maternal grandmother. Took hormonal contraceptives for 3 years. Digital Mammo Screening Bilat: March 15, 2019 - Exam #: [id number] Bilateral CC and MLO view(s) were taken. Technologist: Triny Byrne, Technologist Prior study comparison: March 22, 2017, bilateral digital woman screen mammo, performed at [facility]. January 09, 2013, bilateral bilat screen digital mammo, performed at [facility] ([facility] FINDINGS: The breast tissue is heterogeneously dense. This may lower the sensitivity of mammography. There is a moderate amount of heterogeneously dense fibroglandular tissue which is fairly symmetric. There is no interval development of dominant mass, architectural distortion, or grouped microcalcification typical of malignancy. There has been no change in the appearance of the mammogram from the prior studies. Assessment: BI-RADS/ACR category 1 mammogram. Negative Mammogram. Recommendation Routine screening mammogram of both breasts in 1 year (for women over age 40). This patient's Lifetime Breast Cancer RIsk is estimated at 12.3 %. This mammogram was interpreted with the aid of an FDA-approved computer-aided dectection system. Electronically Signed By: Vikash Abrams MD 03/15/19 [id number]
== END ==
LOC: M RAD 12:57
PROVIDERS: ATTEND Family Medicine
DX: Z12.31 Encounter for screening mammogram for malignant neoplasm of breast (principal); Z80.0 Family history of malignant neoplasm of digestive organs; Z80.3 Family history of malignant neoplasm of breast